=== PATIENT | male | born 1965 | race American Indian/Alaskan Native ===

== ENCOUNTER 2017-05-02 22:28 | Emergency (ER) | payer OTHER ==
[2017-05-02 22:50] VITALS: BP 128/79
[2017-05-02] MEDS ORDERED: TYLENOL PO ONE (22:52)
[2017-05-02] MEDS ORDERED: TYLENOL ONE (22:54)
--- NOTE | 2017-05-02 23:40 | XRay Report ---
FINAL REPORT PROCEDURE: XR HUMERUS 2+V LT TECHNIQUE: LEFT humerus radiographs, AP and lateral views. HISTORY: arm injury COMPARISON: No prior studies are available for comparison. FINDINGS: Fracture (s) and/or Dislocation(s): None . Joint space(s): Normal. Soft tissues: Multiple calcific/ossific densities are identified surrounding the humeral neck Bone mineralization: Normal. Foreign bodies: None. 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
[2017-05-03] MEDS ORDERED: MOTRIN PO ONE (02:28)
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
== END 2017-05-03 05:20 | disposition home or self-care (01) ==
LOC: ED 22:28
DX: M79.622 Pain in left upper arm (principal); F17.200 Nicotine dependence, unspecified, uncomplicated; V03.09XA Pedestrian with other conveyance injured in collision with car, pick-up truck or van in nontraffic accident, initial encounter; Y93.89 Activity, other specified; Y92.89 Other specified places as the place of occurrence of the external cause; Y99.8 Other external cause status